=== PATIENT | male | born 1950 | race Two or more races ===

== ENCOUNTER 2018-08-07 12:59 | Outpatient (CLI) | payer MEDICARE, OTHER ==
[~2018-08-07] VITALS: Ht 165.1 cm; Wt 94.3 kg
[2018-08-07] MEDS ORDERED: UNOBMED (15:53)
[2018-08-07] MEDS ORDERED: METOPROLOL TART50 M1 ORAL (15:53)
[2018-08-07] MEDS ORDERED: ASPIRIN EC81 MG ORAL (15:53)
[2018-08-07] MEDS ORDERED: BENAZEPRIL HCL20 MG ORAL (15:53)
[2018-08-07 16:06] VITALS: BP 125/68
--- NOTE | 2018-08-09 18:00 | Consultation ---
DATE OF CONSULTATION: 08/07/2018 CONSULTING PHYSICIAN: Ventura Lee M.D. REFERRING PHYSICIAN: Giana Watts M.D. HISTORY OF PRESENT ILLNESS: The patient was admitted for evaluation of anemia and need for screening colonoscopy. PAST MEDICAL HISTORY: 1. Back pain. 2. Thyroid disease. 3. Coronary artery disease. 4. Diabetes. 5. Hypertension. 6. History of cardiac stent placement in 2012. 7. Possible multiple myeloma. MEDICATIONS: Please see medication reconciliation list. ALLERGIES: No known allergies. FAMILY HISTORY: Noncontributory. SOCIAL HISTORY: The patient denies any tobacco, alcohol, or drug abuse. REVIEW OF SYSTEMS: Positive for abdominal pain, constipation, bloating, loss of appetite. PHYSICAL EXAMINATION: VITAL SIGNS: Temperature 99.4, blood pressure 125/68, pulse 73, respiratory rate 20. HEENT: Normocephalic and atraumatic. Sclerae anicteric. NECK: Supple. No evidence of obvious lymphadenopathy. CARDIOVASCULAR: Regular rate and rhythm. Plus S1 and S2. No obvious murmur. LUNGS: Clear to auscultation bilaterally. ABDOMEN: Positive bowel sounds. Soft and nontender. No rebound. No guarding. No peritoneal sign. EXTREMITIES: No cyanosis. No clubbing. No edema ASSESSMENT AND PLAN: This is a 68-year-old male with diagnosis of multiple myeloma, chronic anemia, abdominal pain constipation. The patient had a colonoscopy a long time ago more than 10 years ago. Plan to do endoscopy and colonoscopy for evaluation of anemia and also need for colonoscopy. The patient was given instruction for the colonoscopy and the prep. The risks and benefits of the procedure was explained to him and he agreed, we will plan for August 09, 2018. I want to thank Dr. Giana Watts, for this kind referral. Ventura Lee M.D. DR: Luba JOB#: [id number] CC: Giana Watts M.D.; Fax#: [phone]
== END 2018-08-07 14:59 | disposition home or self-care (01) ==
LOC: PAN 12:59
DX: D64.9 Anemia, unspecified (principal); E07.9 Disorder of thyroid, unspecified; I11.9 Hypertensive heart disease without heart failure; I25.10 Atherosclerotic heart disease of native coronary artery without angina pectoris; E11.9 Type 2 diabetes mellitus without complications; Z95.5 Presence of coronary angioplasty implant and graft; R10.9 Unspecified abdominal pain; K59.00 Constipation, unspecified

== ENCOUNTER 2018-08-09 08:02 | Day surgery (SDC) | payer MEDICARE, OTHER ==
[~2018-08-09] VITALS: Ht 165.1 cm; Wt 92.5 kg
[2018-08-09] VITALS (9 sets, daily range): BP systolic 113–135; BP diastolic 70–79
--- NOTE | 2018-08-09 07:19 | Anethesia Preoperative Eval ---
Anesthesia Pre-op PMH/ROS General Date of Evaluation: Aug 09, 2018 Anesthesiologist: Hussein ASA Score: ASA 3 Mallampati Score Class I : Soft palate, uvula, fauces, pillars visible Class II: Soft palate, uvula, fauces visible Class III: Soft palate, base of uvula visible Class IV: Only hard plate visible Mallampati Classification: Class III Surgeon: Jesus Diagnosis: Pain Surgical Procedure: EGD and colonoscopy Anesthesia History: none Family History: no anesthesia problems Allergies: Coded Allergies: No Known Allergies (Unverified , 08/07/18) Medications: see eMAR Patient NPO?: Yes NPO Date: Aug 08, 2018 NPO Time: 22:00 Past Medical History Cardiovascular: Reports: HTN, CAD - s/p stent; Denies: ME, valve dz, arrhythmia, other Pulmonary: Denies: asthma, COPD, ALBERTO, other Gastrointestinal/Genitourinary: Denies: GERD, CRI, ESRD, other Neurologic/Psychiatric: Reports: CVA; Denies: dementia, depression/anxiety, TIA, other Endocrine: Reports: DM, hypothyroidism; Denies: steroids, other HEENT: Denies: cataract (L), cataract (R), glaucoma, FOND DU LAC (L), FOND DU LAC (R), other Hematology/Immune: Denies: anemia, DVT, bleeding disorder, other Musculoskeletal/Integumentary: Denies: OA, RA, DJD, DDD, edema, other PSxH Narrative: Right IHR Anesthesia Pre-op Phys. Exam Physician Exam see chart Constitutional: NAD Cardiovascular: RRR Respiratory: CTA Airway Exam Mallampati Score: Class III MO: limited ROM: limited Anesthesia Pre-op A/P Labs see chart Studies Pre-op Studies: EKG - sr Risk Assessment & Plan Assessment: ASA III Plan: MAC Status Change Before Surgery: No Pre-Antibiotics Drug: N/A Cat Paul MD Aug 09, 2018 07:19
[~2018-08-09 08:02] MED LIST: ASPIRIN EC81 MG ORAL; BENAZEPRIL HCL20 MG ORAL; DiphenhydrAMINE 50mg/ml Inj IVP PRN; LR 1000ml 1,000 ML IVLG SCH; METOPROLOL TART50 M1 ORAL; UNOBMED
[2018-08-09] MEDS ORDERED: METFORMIN HCL1000 M1 ORAL (09:04)
[2018-08-09] MEDS ORDERED: ATORVASTATIN CA40 MG ORAL (09:04)
[2018-08-09] MEDS ORDERED: LATANOPROST 0.7.5 ML OP (09:04)
[2018-08-09] MEDS ORDERED: TIROSINT50 MCG ORAL (09:04)
--- NOTE | 2018-08-09 10:48 | Pre-Procedure Note/Attestation ---
Pre-Procedure Note/Attestation Complete Prior to Procedure Planned Procedure: not applicable Procedure Narrative: esophagogastroduodenoscopy and colonoscopy Indications for Procedure Pre-Operative Diagnosis: screning colon, GERD Attestation I attest that I discussed the nature of the procedure; its benefits; risks and complications; and alternatives (and the risks and benefits of such alternatives ), prior to the procedure, with the patient (or the patient's legal employment program representative). I attest that, if there was a reasonable possibility of needing a blood transfusion, the patient (or the patient's legal employment program representative) was given the [facility] standardized written summary, pursuant to the [place] Blood Safety Act ([place] Health and Safety Code # 1645, as amended). I attest that I re-evaluated the patient just prior to the surgery and that there has been no change in the patient's H&P, except as documented below: Ventura Lee MD Aug 09, 2018 10:48
[2018-08-09] MEDS ORDERED: Propofol 200mg/20ml IV ONE (11:00)
[2018-08-09] MEDS ORDERED: Lidocaine 1% MPF 10mg/ml 5ml ONE (11:00)
--- NOTE | 2018-08-09 11:07 | Short Stay Surgery H&P ---
History of Present Illness History of Present Illness Chief Complaint screening colon, GERD HPI Jabier Dejesus is a 68 year old male who was admitted on for Abdominal Pain, Constipation, Bloating Patient History Allergies: Coded Allergies: No Known Allergies (Unverified , 08/07/18) PAST MEDICAL HISTORY: (1) HTN (hypertension) (2) DM (3) CAD (coronary artery disease) Medication History Scheduled Aspirin Ec* (Aspirin Ec*), 81 MG ORAL DAILY, (Reported) Atorvastatin Calcium* (Atorvastatin Calcium*), 40 MG ORAL BEDTIME, (Reported) Benazepril Hcl* (Benazepril Hcl*), 20 MG ORAL EVERY 12 HOURS, (Reported) Latanoprost/Pf (Latanoprost 0.005% Eye Drop), 1 DROP OP HS, (Reported) Levothyroxine Sodium* (Tirosint*), 50 MCG ORAL DAILY, (Reported) Metformin Hcl* (Metformin Hcl*), 1,000 MG ORAL BID, (Reported) Metoprolol Tartrate* (Metoprolol Tartrate*), 25 MG ORAL EVERY 12 HOURS, ( Reported) Review of Systems Cardiovascular: Reports: no symptoms Respiratory: Reports: no symptoms Skeletal: Reports: no symptoms Gastrointestinal: Reports: no symptoms Genitourinary: Reports: no symptoms Neurologic: Reports: no symptoms Endocrine: Reports: no symptoms Hematologic: Reports: no symptoms Physical Exam Vital Signs Last Vital Signs Date Time Temp Pulse Resp B/P (MAP) Pulse Ox O2 Delivery O2 Flow Rate FiO2 08/09/18 08:48 Room Air 08/09/18 08:48 97.9 90 18 128/75 96 Skin: normal HENT: normal Heart: normal Lungs: normal Abdomen: normal Extremities: normal Plan Plan of Care esophagogastroduodenoscopy and colonoscopy Attestation Are the patient's medical conditions optimized for surgery? Attestation Response: yes Ventura Lee MD Aug 09, 2018 11:07
--- NOTE | 2018-08-09 11:47 | Endoscopy Procedure Note ---
Endoscopy Procedure Note General Indication for Procedure: screening colon, GERD Procedures Performed: EGD, colonoscopy Operative Findings/Diagnosis: DU, gastritis, diverticulosis Specimen: yes Pt Tolerated Procedure Well: Yes Estimated Blood Loss: none Anesthesia Anesthesiologist: connie Anesthesia: MAC Inserted Devices Implant(s) used?: No Quality Quality of Bowel Preparation: Good Did scope reach the cecum?: Yes Was there any complications?: No GI Core Measures 50 yrs or older w/o bx or poly: No 10yrs. F/U recommended: Yes If not recommended, why?: Above average risk 18 years or older w/prev. colo: No Ventura Lee MD Aug 09, 2018 11:47
--- NOTE | 2018-08-09 11:54 | Immediate Post-Op Evaluation ---
Immediate Post-Op Evalulation Immediate Post-Op Evalulation Procedure: EGD and colonoscopy Date of Evaluation: Aug 09, 2018 Time of Evaluation: 11:55 IV Fluids: 400 Blood Products: 0 Estimated Blood Loss: 0 Urinary Output: 0 Blood Pressure Systolic: 122 Blood Pressure Diastolic: 73 Pulse Rate: 75 Respiratory Rate: 16 O2 Sat by Pulse Oximetry: 100 Temperature (Fahrenheit): 97.2 Pain Score (1-10): 0 Nausea: No Vomiting: No Complications 0 Patient Status: awake, reacts, patent, none Hydration Status: adequate Drug: N/A Cat Paul MD Aug 09, 2018 11:54
--- NOTE | 2018-08-09 11:56 | 48 Hour Post Anesthesia Eval ---
Post Anesthesia Evaluation Procedure: EGD and colonoscopy Date of Evaluation: Aug 09, 2018 Airway: patent Nausea: No Vomiting: No Hydration Status: adequate Cardiopulmonary Status: at baseline Mental Status/LOC: patient returned to baseline Post-Anesthesia Complications: 0 Follow-up care needed: ready to discharge Cat Paul MD Aug 09, 2018 11:56
--- NOTE | 2018-08-09 18:30 | Procedure Note ---
DATE OF PROCEDURE: 08/09/2018 SURGEON: Ventura Lee M.D. PROCEDURE: Upper endoscopy biopsy and colonoscopy. ANESTHESIA: Per Dr. Reilly. INSTRUMENT: Olympus adult flexible upper endoscope and colonoscope. REASON FOR PROCEDURE: The procedure, risks, benefits, and possible consequences, including hemorrhage, aspiration, perforation and infection, and alternative treatments, were explained to the patient/legal guardian by Dr. Ventura Lee and the patient/legal guardian understood and accepted these risks. INDICATION: Screening colonoscopy evaluation, chronic GERD, anemia. DESCRIPTION OF PROCEDURE: After informed consent was obtained and the patient was adequately sedated, Olympus upper endoscope was advanced from mouth into the second portion of the duodenum and retroflexion was performed in the stomach. The patient had evidence of duodenal ulceration, clean based, small less than 1 centimeter with associated duodenitis. Suspicious for H. pylori infection. In the stomach, there were linear erosions in the prepyloric region. Biopsy from the antrum and body was obtained to rule out H. pylori infection. At this time, the upper endoscope was retrieved. The patient was turned over for colonoscopy. First, rectal exam was performed, which was positive for internal hemorrhoids. Then, the scope was advanced into the rectum, the cecum, and then subsequently to terminal ileum. Quality of prep overall was good except for the cecum. Examination of cecum was limited given this prep. The patient had no polyps in this colonoscopic examination. There was some scattered diverticulosis in the left colon. Retroflexion of the rectum showed evidence of medium-sized internal hemorrhoids. SUMMARY OF FINDINGS: 1. Duodenal ulcer. 2. Duodenitis. 3. Linear erosions in the the antrum. 4. Gastritis, status post biopsy. 5. Internal hemorrhoids. 6. Diverticulosis. RECOMMENDATIONS: Follow pathology. Treat for H. pylori if it is positive. Start the patient on PPI while waiting for the biopsy results. I want to thank Dr. Giana Watts for this kind referral. Ventura Lee M.D. DR: LISANDRO JOB#: [id number] CC: Giana Watts M.D.; Fax#: [phone]
--- NOTE | 2018-08-11 12:10 | Cardiology Report ---
APPROVED REPORT EKG Measurement Heart [id number] IA 128P-4 [id number] Normal sinus rhythm Normal ECG
== END 2018-08-09 13:05 | disposition home or self-care (01) ==
LOC: GAS 08:02
DX: Z12.11 Encounter for screening for malignant neoplasm of colon (principal); K21.9 Gastro-esophageal reflux disease without esophagitis; D64.9 Anemia, unspecified; K26.9 Duodenal ulcer, unspecified as acute or chronic, without hemorrhage or perforation; K29.80 Duodenitis without bleeding; K29.50 Unspecified chronic gastritis without bleeding; K64.8 Other hemorrhoids; K57.90 Diverticulosis of intestine, part unspecified, without perforation or abscess without bleeding; I11.9 Hypertensive heart disease without heart failure; Z95.5 Presence of coronary angioplasty implant and graft; E11.9 Type 2 diabetes mellitus without complications; E03.9 Hypothyroidism, unspecified; Z86.73 Personal history of transient ischemic attack (TIA), and cerebral infarction without residual deficits
CPT/HCPCS: 43239; 82962; 93005; G0121; J2704; 94003; 94150

== ENCOUNTER 2018-12-28 11:17 | Inpatient (IN) | payer MEDICARE, OTHER ==
[~2018-12-28] VITALS: Ht 167.6 cm; Wt 74.8 kg
[2018-12-28] VITALS (8 sets, daily range): BP systolic 112–180; BP diastolic 62–102
[~2018-12-28 11:17] MED LIST changes: +ATORVASTATIN CA40 MG ORAL; -DiphenhydrAMINE 50mg/ml Inj IVP PRN; +LATANOPROST 0.7.5 ML OP; -LR 1000ml 1,000 ML IVLG SCH; +METFORMIN HCL1000 M1 ORAL; +TIROSINT50 MCG ORAL
--- NOTE | 2018-12-28 11:47 | NUR ---
ED Nurse Note: pt came in via ems ra 61 from chemo clinic for near syncope pt missed his chemo session. 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 pt unable to provide urine at this time. Pt down to ct now.
[2018-12-28 12:07] LABS: BASOPHILS % (AUTO) 1.4 % (0.0-2.0); EOSINOPHILS % (AUTO) 6.1 % (0.0-3.0); HEMATOCRIT 37.8 % (42.0-52.0); HEMOGLOBIN 12.8 G/DL (14.2-18.0); MEAN CORPUSCULAR VOLUME 86 FL (80-99); MONOCYTES % (AUTO) 6.9 % (1.0-10.0); NEUTROPHILS % (AUTO) 74.7 % (45.0-75.0); PLATELET COUNT 128 K/UL (150-450); RED BLOOD COUNT 4.41 M/UL (4.70-6.10); RED CELL DISTRIBUTION WIDTH 14.8 % (11.6-14.8); WHITE BLOOD COUNT 8.9 K/UL (4.8-10.8)
--- NOTE | 2018-12-28 12:11 | Diagnostic Imaging Report ---
Indication: Altered level of consciousness Technique: Contiguous 5 mm thick transaxial imaging of the head obtained in a Siemens Sensation [address] scanner. Soft tissue and bone windows generated. Automatic Exposure Control was utilized. Total Dose length Product (DLP): 1304.[address] Dose Index Volume (CTDIvol): 60 mGy Comparison: none Findings: There is a slightly ill-defined area of low attenuation close to fluid attenuation in the right occipital region likely representing a small focus of encephalomalacia from a previous infarct. Generalized atrophy of the brain is noted mild in degree characterized by prominence of the cortical sulci and basal cisterns and ventricles. There is no mass effect or edema identified. There is no evidence of acute intracranial hemorrhage. The osseous structures are unremarkable. IMPRESSION: No acute intracranial findings identified. Suspected old infarct in the right occipital region The CT scanner at [facility] is accredited by the [employer] and the scans are performed using dose optimization techniques as appropriate to a performed exam including Automatic Exposure control.
--- NOTE | 2018-12-28 12:14 | Diagnostic Imaging Report ---
Indication: Dyspnea Comparison: None A single view chest radiograph was obtained. Findings: Cardiomediastinal appearance is within normal limits for age. The lungs are clear. Pulmonary vascularity is appropriate. The diaphragmatic contour is smooth and costophrenic angles are sharp. No pleural effusions are identified. The bones are unremarkable. Impression: No acute findings
[2018-12-28 12:16] LABS: ANION GAP 4 mmol/L (5-15); BLOOD UREA NITROGEN 15 mg/dL (7-18); CALCIUM 8.5 MG/DL (8.5-10.1); CARBON DIOXIDE 30 MMOL/L (21-32); CHLORIDE 102 MMOL/L (98-107); POTASSIUM 3.5 MMOL/L (3.5-5.1); SODIUM 136 MMOL/L (136-145)
[2018-12-28 12:41] LABS: ALANINE AMINOTRANSFERASE 21 U/L (12-78); ALKALINE PHOSPHATASE 51 U/L (46-116); ASPARTATE AMINO TRANSFERASE 15 U/L (15-37); BILIRUBIN,TOTAL 1.7 MG/DL (0.2-1.0); CREATINE KINASE 17 U/L (26-308)
[2018-12-28 12:52] LABS: BILIRUBIN,DIRECT 0.3 MG/DL (0.0-0.3)
--- NOTE | 2018-12-28 13:28 | NUR ---
ED Nurse Note: reflex lactic sent down
--- NOTE | 2018-12-28 13:51 | NUR ---
ED Nurse Note: pt on monitor vss family at bedside mrsa vre cre sent belongings list done will monitor
--- NOTE | 2018-12-28 14:01 | Emergency Room Report ---
History of Present Illness General Chief Complaint: Syncope Source: Patient, Family Member, EMS Present Illness HPI Patient with multiple myeloma had a near syncopal or syncopal episode in his doctor's office. Apparently has not been feeling well the last few days and not eating well. According to the referring doctor the patient's heart rate was also slow. The patient states he has been feeling weak for several days. He denies any fevers or chills. No nausea, vomiting or diarrhea. Patient is complaining about a headache also. He rates the pain 4/10 generalized nonradiating pressure. Is unclear how long this is been going on. 250 cc of normal saline were administered before EMS arrived. An EKG was performed which showed no injury. Apparently he was being evaluated for chemotherapy. The patient takes tramadol for bone pain. According to the family the patient has been admitted for urinary tract infections in the past. Patient has a history of multiple myeloma. Patient has a history of diabetes. Paramedics report that the patient has had a stroke. No sore throat, chest pain, palpitations, dysuria, abdominal pain, shortness of breath, joint pain, rashes, depression, anxiety. Allergies: Coded Allergies: No Known Allergies (Unverified , 08/07/18) Patient History Past Medical History: see triage record Past Surgical History: PTCA, other - hernias, cataract surgery Social History: Denies: smoking, alcohol use, drug use Social History Narrative with family Reviewed Nursing Documentation: PMH: Agreed; PSxH: Agreed Nursing Documentation-PMH Hx Cardiac Problems: Yes Hx Hypertension: Yes Hx Diabetes: Yes Hx Cancer: Yes - MULTIPLE MYELOMA, BONE MARROW CA Hx Gastrointestinal Problems: No Hx Neurological Problems: No Hx Cerebrovascular Accident: Yes Review of Systems All Other Systems: negative except mentioned in HPI Physical Exam Vital Signs Date Time Temp Pulse Resp B/P (MAP) Pulse Ox O2 Delivery O2 Flow Rate FiO2 12/28/18 11:14 97.9 74 18 112/62 (79) 98 Room Air Sp02 EP Interpretation: reviewed, normal General Appearance: no apparent distress, alert, Chronically Ill Head: normocephalic Eyes: bilateral eye normal inspection, bilateral eye EOMI, bilateral eye other - sylastic lenses ENT: moist mucus membranes Neck: supple Respiratory: chest non-tender, lungs clear, normal breath sounds Cardiovascular #1: regular rate, rhythm Cardiovascular #2: 2+ radial (R) Gastrointestinal: normal inspection, normal bowel sounds, non tender, no mass, non-distended Genitourinary: no CVA tenderness Musculoskeletal: back normal, normal range of motion Neurologic: alert, oriented x3, DTRs symmetric, sensory intact, speech normal Psychiatric: depressed affect Skin: no rash, warm/dry Medical Decision Making Diagnostic Impression: Primary Impression: Near syncope Additional Impressions: Elevated lactic acid level Multiple myeloma Qualified Codes: C90.00 - Multiple myeloma not having achieved remission Bradycardia ER Course Patient presents from doctor's office via EMS after near syncopal episode. Differential includes acute myocardial infarction, arrhythmia (bradycardia), dehydration, sepsis, occult infection, excess medication amongst others. Evaluation with EKG, chest x-ray and labs. Treatment with IV hydration. The patient is placed on a teletypesetter monitor. Due to the fact that the patient is having headache with near syncope CT of the head is indicated. EKG with sinus bradycardia. Chest x-ray no infiltrates. Normal white count. CMP is essentially normal. BNP slightly elevated. Elevated lactic acid. No source of infection identified. Patient afebrile with normal white count. Still will have to query sepsis. Urinalysis pending. Consideration for antibiotic coverage. 1400 Dr. Watts requests admission to Dr. Keys. Late return of urine. Rocephin ordered. Patient admitted to telemetry. Laboratory Tests Test 12/28/18 11:30 12/28/18 13:20 12/28/18 13:21 White Blood Count 8.9 K/UL (4.8-10.8) Red Blood Count 4.41 M/UL (4.70-6.10) L Hemoglobin 12.8 G/DL (14.2-18.0) L Hematocrit 37.8 % (42.0-52.0) L Mean Corpuscular Volume 86 FL (80-99) Mean Corpuscular Hemoglobin 28.9 PG (27.0-31.0) Mean Corpuscular Hemoglobin Concent 33.7 G/DL (32.0-36.0) Red Cell Distribution Width 14.8 % (11.6-14.8) Platelet Count 128 K/UL (150-450) L Mean Platelet Volume 11.7 FL (6.5-10.1) H Neutrophils (%) (Auto) 74.7 % (45.0-75.0) Lymphocytes (%) (Auto) 11.0 % (20.0-45.0) L Monocytes (%) (Auto) 6.9 % (1.0-10.0) Eosinophils (%) (Auto) 6.1 % (0.0-3.0) H Basophils (%) (Auto) 1.4 % (0.0-2.0) Prothrombin Time 10.9 SEC (9.30-11.50) Prothrombin Time INR 1.0 (0.9-1.1) PTT 27 SEC (23-33) Sodium Level 136 MMOL/L (136-145) Potassium Level 3.5 MMOL/L (3.5-5.1) Chloride Level 102 MMOL/L (98-107) Carbon Dioxide Level 30 MMOL/L (21-32) Anion Gap 4 mmol/L (5-15) L Blood Urea Nitrogen 15 mg/dL (7-18) Creatinine 1.0 MG/DL (0.55-1.30) Estimate Glomerular Filtration Rate > 60 mL/min (>60) Glucose Level 126 MG/DL (74-106) H Lactic Acid Level 2.60 mmol/L (0.4-2.0) H 1.70 mmol/L (0.66-2.22) Calcium Level 8.5 MG/DL (8.5-10.1) Total Bilirubin 1.7 MG/DL (0.2-1.0) H Direct Bilirubin 0.3 MG/DL (0.0-0.3) Aspartate Amino Transferase (AST) 15 U/L (15-37) Alanine Aminotransferase (ALT) 21 U/L (12-78) Alkaline Phosphatase 51 U/L (46-116) Total Creatine Kinase 17 U/L (26-308) L Troponin I 0.015 ng/mL (0.000-0.056) Pro-B-Type Natriuretic Peptide 638 pg/mL (0-125) H Total Protein 6.1 G/DL (6.4-8.2) L Albumin 3.0 G/DL (3.4-5.0) L Globulin 3.1 g/dL Albumin/Globulin Ratio 1.0 (1.0-2.7) Lipase 161 U/L (73-393) Urine Color Brown Urine Appearance Clear Urine pH 6 (4.5-8.0) Urine Specific [place] 1.020 (1.005-1.035) Urine Protein 3+ (NEGATIVE) H Urine Glucose (UA) Negative (NEGATIVE) Urine Ketones 1+ (NEGATIVE) H Urine Blood 1+ (NEGATIVE) H Urine Nitrite Negative (NEGATIVE) Urine Bilirubin 1+ (NEGATIVE) H Urine Ictotest Negative (NEGATIVE) Urine Urobilinogen 8 MG/DL (0.0-1.0) H Urine Leukocyte Esterase 1+ (NEGATIVE) H Urine RBC 5-10 /HPF (0 - 0) H Urine WBC 5-10 /HPF (0 - 0) H Urine Squamous Epithelial Cells Few /LPF (NONE/OCC) Urine Amorphous Sediment Few /LPF (NONE) H Urine Bacteria Few /HPF (NONE) Urine Mucus Few /LPF (NONE/OCC) H Urine Opiates Screen Negative (NEGATIVE) Urine Barbiturates Screen Negative (NEGATIVE) Phencyclidine (PCP) Screen Negative (NEGATIVE) Urine Amphetamines Screen Negative (NEGATIVE) Urine Benzodiazepines Screen Negative (NEGATIVE) Urine Cocaine Screen Negative (NEGATIVE) Urine Marijuana (THC) Screen Negative (NEGATIVE) EKG Diagnostic Results Rate: bradycardiac Rhythm: NSR ST Segments: no acute changes Rhythm Strip Diag. Results EP Interpretation: yes Rhythm: no PVC's, other - PACs rate [address]-T wave changes Chest X-Ray Diagnostic Results Chest X-Ray Diagnostic Results : Chest X-Ray Ordered: Yes # of Views/Limited/Complete: 1 View Indication: Other EP Interpretation: Yes Interpretation: no consolidation, no effusion, no pneumothorax Impression: No acute disease Electronically Signed by: Electronically signed by Yves Caballero MD CT/MRI/US Diagnostic Results CT/MRI/US Diagnostic Results : Imaging Test Ordered: head Impression No acute intracranial findings identified. Suspected old infarct in the right occipital region Last Vital Signs Date Time Temp Pulse Resp B/P (MAP) Pulse Ox O2 Delivery O2 Flow Rate FiO2 12/28/18 23:23 79 12/28/18 20:57 180/85 12/28/18 19:40 98.2 16 100 12/28/18 17:48 Room Air Status: improved Disposition: ADMITTED INPATIENT Condition: Serious Referrals: Giana Watts MD (PCP) Yves Caballero MD Dec 28, 2018 14:01
[2018-12-28] MEDS ORDERED: LORazepam Inj 2mg/ml 1ml IV PRN (14:15)
[2018-12-28] MEDS ORDERED: Morphine Sulfate 2mg/ml Inj(IV/IM USE ONLY) IVP PRN (14:15)
[2018-12-28] MEDS ORDERED: Miralax 17gm pkt ORAL PRN (14:15)
[2018-12-28] MEDS ORDERED: Zolpidem 5mg tab ORAL PRN (14:15)
[2018-12-28 14:25] LABS: APPEARANCE,URINE CLEAR; BILIRUBIN, URINE 1+ (NEGATIVE); COLOR,URINE BROWN; GLUCOSE, URINE (UA) NEGATIVE (NEGATIVE); KETONES,URINE 1+ (NEGATIVE); LEUKOCYTE ESTERASE ,URINE 1+ (NEGATIVE); NITRITE,URINE NEGATIVE (NEGATIVE); PH,URINE 6 (4.5-8.0); PROTEIN,URINE 3+ (NEGATIVE); UROBILINOGEN,URINE 8 MG/DL (0.0-1.0)
[2018-12-28] MEDS ORDERED: cefTRIAXone 1 GM in NS 55 ML IVPB ONE (15:45)
--- NOTE | 2018-12-28 17:51 | NUR ---
ED Nurse Note: pt up to floor with risk management internclinical nurse educator and red box on monitor.
--- NOTE | 2018-12-28 18:10 | NUR ---
NURSE NOTES: Patient transferred from ED via [place], received report from Sonia/RN. Patient is fatigue and asleep, On room air, No acute distress/SOB noted. Placed pvc monitor, sinus remedios. IV on Right wrist 18 gauge patent, no bleeding or infiltration noted. Vital signs taken. Belonging check done. Bed in low position and locked. Call light within reach. Encouraged to use call light when needed. Will continue plan of care.
[2018-12-28] MEDS: NovoLOG Insulin Flexpen SUBQ SCH ×2 (18:15→20:09)
--- NOTE | 2018-12-28 19:30 | NUR ---
NURSE NOTES: Received report from Angie RN, pt. in bed awake, Pt. appears to be confused- Appears to be alert to name. pt. has family at bedside, pt. appers to be sating well on 2L NC at 94%- no distress noted, pt. teaching done and oriented pt. to room. Family member is not allowing me to do physical as he is considering taking pt. to [facility] as they have all of pts records- charge nurse Stefan benavides. pt. has urinal at bedside. bed in lowest position and call light within easy reach, bed alarm on, side rails up x's3 and safety brakes engaged. safety measures continued, will continue with plan of care. Admission not done as pt. is going AMA.
--- NOTE | 2018-12-28 19:33 | NUR ---
NURSE NOTES: Left message for DR. Raya regarding pts. b/p is now 170/72 and heart rate 56- if he would like to change medicine clonidine as it may decrease heart rate- awaiting for call back from doctor. Addendum: 12/28/18 at 2256 by JOLIE VELASCO RN RN Also notified DR. Raya- pt. is on other medications other than the ones in med reconcile- Revlimid 2.5mg QD, Acyclovir 400mg BID. Oysco 500mg BID, Mirtazapine 15mg QD HS and Atorvastatin 40mg QD- all medications taken today per .
--- NOTE | 2018-12-28 19:34 | NUR ---
HAND-OFF: Report given to Jose/RN, Patient is in stable condition. Family at bedside. Endorsed plan of care.
--- NOTE | 2018-12-28 20:20 | NUR ---
NURSE NOTES: re-checked b/p now 119/84 and heart rate 57- family aware b/p trending down. Family aware I am awaiting for orders form DR. Raya for b/p as it trends up.
--- NOTE | 2018-12-28 20:39 | NUR ---
NURSE NOTES: per DR. Raya- to notify DR. Robert for cardiology consult for b/p. Addendum: 12/28/18 at 2257 by JOLIE VELASCO RN RN No other orders were given by DR. Raya, regarding medications that pt. is taking for chemotherapy
--- NOTE | 2018-12-28 20:43 | NUR ---
NURSE NOTES: Notified DR. Robert regarding pts b/p is now 180/85 with heart rate 57- per DR. Robert- to order Norvasc 2.5MG BID PRN SBP>160- he is aware that DR. Raya ordered medicine but was not given due to heart rate may drop- orders carried out.
--- NOTE | 2018-12-28 20:58 | NUR ---
NURSE NOTES: Administered Norvasc to patient- family concerned pt. may not have swallowed medicine as he is pocketing water in his mouth- I had pt. spit out in a basin- did not see any medicine in basin- family aware- also witness by charge nurse Stefan. Family still asking if doctor can order IV medicine- will f/u.
[2018-12-28] MEDS ORDERED: Heparin 5000 units/ml inj SUBQ SCH (21:00)
--- NOTE | 2018-12-28 21:06 | NUR ---
NURSE NOTES: Made Aware pt. is not taking medications PO - per DR. Robert- we can order Hydralazine 10mg IV Q4hrs- PRN SBP>160. Received orders but not put in eMAR as family has now decided to got AMA. Family stated- that they would rather go to [facility] as pts has a long history there due to his cancer and because his records are there. Charge nurse made aware - AMA process started.
--- NOTE | 2018-12-28 22:25 | NUR ---
NURSE NOTES: pt. leaving against medical advice- form signed by pts. - IVs removed- charge nurse Stefan aware. Pt. appears stable upon leaving the hospital. F Addendum: 12/28/18 at 2311 by JOLIE VELASCO RN RN Made family aware that i would like to take b/p before pt. leaves to reassess pt. - but family refused. Family was also made aware that pt. was upgraded to SDU unit-but continues to refuse stay at [facility] and wishes to go to [facility].
--- NOTE | 2018-12-29 12:49 | Cardiology Report ---
APPROVED REPORT EXAM: Two-dimensional and M-mode echocardiogram with Doppler and color Doppler. INDICATION Congestive Heart Failure M-Mode DIMENSIONS IVSd1.1 (0.7-1.1cm)Left Atrium (MM)4.3 (1.6-4.0cm) LVDd5.5 (3.5-5.6cm)Aortic Root2.9 (2.0-3.7cm) PWd1.1 (0.7-1.1cm)Aortic Cusp Exc.1.7 (1.5-2.0cm) IVSs1.6 cm LVDs3.7 (2.5-4.0cm) PWs1.2 cm Technically difficult study due to poor acoustical windows. Normal left ventricular chamber size, systolic function and wall motion to extent visualized. Left ventricular ejection fraction estimated to be 55%. No evidence of left ventricular hypertrophy. Mild left atrial enlargement . Right cardiac chamber sizes are within normal limits. Focal aortic valve sclerosis with adequate cusp excursion. Thickened mitral valve leaflets with normal excursion. Mitral annulus and aortic root calcification. Normal pulmonic valve structure. Normal tricuspid valve structure. IVC at normal size with physiologic collapse. A color flow and spectral Doppler study was performed and revealed: No aortic insufficiency. Mild mitral regurgitation. Mitral inflow indicates normal left ventricular diastolic function. Trace tricuspid regurgitation. Tricuspid systolic velocities suggests peak right ventricular systolic pressure of 8 mmHg.
--- NOTE | 2018-12-30 15:03 | Cardiology Report ---
APPROVED REPORT EKG Measurement Heart [id number] Sinus rhythm with premature atrial complexes Otherwise normal ECG
--- NOTE | 2018-12-31 08:11 | History & Physical ---
History and Physical History & Physicial patient signed AMA prior my visit Hank Keys MD Dec 31, 2018 08:11
--- NOTE | 2018-12-31 11:19 | Discharge Summary ---
Discharge Summary Discharge Summary _ DATE OF ADMISSION: 12/28/2018 DATE OF DISCHARGE: 12/28/2018 Patient left AGAINST MEDICAL ADVICE REASON FOR ADMISSION: 68 years old male with past medical history of hypertension, diabetes mellitus , multiple myeloma, history of CVA, was not feeling well for the last few days. Patient had decreased oral intake. Patient was evaluated for chemotherapy. Upon evaluation in the office by his oncologist Dr Watts , patient was found to be bradycardic and near syncopal. Patient was complaining of headache. Pain graded as 4 out of 10, nonradiating, pressure-like , generalized. He denied fever or chills. No nausea, vomiting or diarrhea. In the office, patient received 250 cc of normal saline . EKG revealed no acute ischemic changes. Upon evaluation in emergency department vital signs were stable. Laboratory work-up revealed no leukocytosis , hemoglobin 12.8 , hematocrit 37.8. Platelet count 128 . Stable electrolytes and renal parameters. Lactic acid 2.6. Total bilirubin 1.7, direct bilirubin 0.3. Troponin 0 0.015. pro BNP 638. EKG revealed sinus rhythm, no acute ischemic changes. Albumin 3.0. Lipase 161 stable LFT. Urinalysis revealed +3 protein , + 1 leukocyte esterase, pyuria and few bacteria. Urine toxicology screen was negative. Chest x-ray revealed no acute cardiopulmonary pathology. CT of the head revealed no acute intracranial findings. Suspected old infarct in the right occipital region. Patient started on empiric antibiotic for possible UTI and admitted to telemetry floor for further management. HOSPITAL COURSE: Patient was admitted to telemetry floor. Patient started on the IV fluids. Pain management was addressed. Blood pressure was managed with calcium channel [place]ita. DVT prophylaxis provided. Synthroid resumed. Bowel regimen instituted. Repeated lactic acid 1.7. Echocardiogram revealed preserved ejection fraction of 65% with no evidence of left ventricular hypertrophy. No evidence of wall motion abnormality. Right ventricular systolic pressure of 8. Blood pressure elevated 180/85. Patient was upgraded to SDU. Antihypertensive medication regimen was further optimized,. Later in the evening patient decided to leave AGAINST MEDICAL ADVICE to go to [facility] for further management. The risks and consequences of signing AGAINST MEDICAL ADVICE were discussed with patient in detail. Patient verbalized understanding, nevertheless signed AMA form and left. Heart rate 79 prior to leaving. FINAL DIAGNOSES: Near syncopal episode Lactic acidosis Multiply myeloma Bradycardia I have been assigned to dictate discharge summary for this account. I was not involved in the patient's management. Diana Jackson NP Dec 31, 2018 11:19
== END 2018-12-28 22:25 | disposition left against medical advice (07) | DRG 309 ==
LOC: EDBD 11:17 → EMR 12:30 → 2E 13:01 → EDBEDREQ 16:18
DX: R00.1 Bradycardia, unspecified (principal); C90.00 Multiple myeloma not having achieved remission; E87.2 Acidosis; R55 Syncope and collapse; R51 Headache; Z86.73 Personal history of transient ischemic attack (TIA), and cerebral infarction without residual deficits
CPT/HCPCS: 36415; 70450; 71045; 80053; 80307; 81001; 82248; 82550; 82962; 83605; 83690; 83880; 84484; 85025; 85610; 85730; 87040; 93005; 93306; 96361; 96365; 99285; J1815; J7030